=== PATIENT | female | born 1980 | race Caucasian/White ===

== ENCOUNTER 2017-06-16 16:53 | Emergency (ER) | payer OTHER ==
[~2017-06-16] VITALS: Ht 165.1 cm; Wt 49.0 kg
[2017-06-16] MEDS ORDERED: IBUPROFEN (17:05)
[2017-06-16] MEDS ORDERED: KETOROLAC 30MG/ML VIAL IV ONE (18:30)
[2017-06-16 18:32] LABS: CLARITY URINE CLEAR (CLEAR); COLOR URINE YELLOW (YELLOW); GLUCOSE URINE NEGATIVE (NEGATIVE); KETONES URINE NEGATIVE (NEGATIVE); LEUKOCYTE ESTERASE URINE NEGATIVE (NEGATIVE); NITRITE URINE NEGATIVE (NEGATIVE); OCCULT BLOOD URINE NEGATIVE (NEGATIVE); PH URINE 5.5 (4.5-8.0); PROTEIN URINE NEGATIVE (NEGATIVE); SPECIFIC GRAVITY URINE 1.011 (1.005-1.030); UROBILINOGEN URINE 0.2 E.U./dL (0.2-1.0)
[2017-06-16 19:22] VITALS: BP 111/49
== END 2017-06-16 19:29 | disposition home or self-care (01) ==
LOC: ER 16:53
DX: M54.5 Low back pain (principal); Z88.0 Allergy status to penicillin; Z87.19 Personal history of other diseases of the digestive system; Z86.19 Personal history of other infectious and parasitic diseases
CPT/HCPCS: 81003; 81025; 96374; 99284; J1885